=== PATIENT | male | born 1940 | race Asian ===

== ENCOUNTER 2018-06-02 10:05 | Emergency (ER) | payer OTHER ==
[~2018-06-02] VITALS: Ht 182.9 cm; Wt 79.4 kg
[2018-06-02 10:21] VITALS: BP_SYST 137
[2018-06-02] MEDS ORDERED: DIPH-TET-PERTUS Vaccine 0.5 ML VIAL (ADACEL) I.M. ONE (11:00)
[2018-06-02] MEDS ORDERED: LIDOCAINE 1% 10 MG/ML, 20 ML MDV IJ ONE (11:00)
[2018-06-02] MEDS ORDERED: BACITRACIN 1 GM OINT TP ONE (11:00)
[2018-06-02 11:50] VITALS: BP_SYST 107
== END 2018-06-02 11:50 | disposition home or self-care (01) ==
LOC: SED 10:05
DX: S61.411A Laceration without foreign body of right hand, initial encounter (principal); M20.031 Swan-neck deformity of right finger(s); W01.0XXA Fall on same level from slipping, tripping and stumbling without subsequent striking against object, initial encounter; Y93.89 Activity, other specified; Y99.8 Other external cause status; Y92.89 Other specified places as the place of occurrence of the external cause
CPT/HCPCS: 73140-TC; 90715; 99283; J2001